=== PATIENT | male | born 1995 | race Caucasian/White ===

== ENCOUNTER 2018-03-24 16:30 | Emergency (ER) | payer OTHER ==
[~2018-03-24] VITALS: Ht 175.3 cm; Wt 64.5 kg
[~2018-03-24 16:30] MED LIST: BENT10CA PO
[2018-03-24 17:27] LABS: HEMATOCRIT 50.4 % (42.0-52.0); HEMOGLOBIN 15.9 g/dl (13.5-17.5); MEAN CORPUSCULAR HEMOGLOBIN 25.8 pg (27.0-33.0); MEAN CORPUSCULAR HGB CONC 31.5 g/dl (32.0-36.5); MEAN CORPUSCULAR VOLUME 81.7 fl (80.0-96.0); PLATELET COUNT, AUTOMATED 311 10^3/uL (150-450); RED BLOOD COUNT 6.17 10^6/uL (4.30-6.10); WHITE BLOOD COUNT 7.2 10^3/uL (4.0-10.0)
[2018-03-24 17:44] LABS: AMPHETAMINES LEVEL URINE NEGATIVE (NEGATIVE); BARBITURATES URINE NEGATIVE (NEGATIVE); BENZODIAZEPINES URINE NEGATIVE (NEGATIVE); CANNABINOIDS URINE NEGATIVE (NEGATIVE); COCAINE METABOLITE URINE NEGATIVE (NEGATIVE); METHADONE URINE NEGATIVE (NEGATIVE); OPIATES URINE NEGATIVE (NEGATIVE); PHENCYCLIDINE URINE NEGATIVE (NEGATIVE)
[2018-03-24 17:56] LABS: ACETAMINOPHEN LEVEL < 2.0 UG/ML (10.0-30.0); ALBUMIN 4.6 GM/DL (3.2-5.2); ALT/SGPT 25 U/L (12-78); BILIRUBIN,DIRECT 0.2 MG/DL (0.0-0.2); BILIRUBIN,TOTAL 0.7 MG/DL (0.2-1.0); BLOOD UREA NITROGEN 11 MG/DL (7-18); CALCIUM LEVEL 9.5 MG/DL (8.5-10.1); CARBON DIOXIDE LEVEL 29 MEQ/L (21-32); CHLORIDE LEVEL 104 MEQ/L (98-107); CREATININE FOR GFR 1.07 MG/DL (0.70-1.30); ETHYL ALCOHOL (ETHANOL) < 0.003 % (0.000-0.010); GLOMERULAR FILTRATION RATE > 60.0 (>60); GLUCOSE, FASTING 89 MG/DL (70-100); POTASSIUM SERUM 4.1 MEQ/L (3.5-5.1); SALICYLATE LEVEL < 1.7 MG/DL (5.0-30.0); SODIUM LEVEL 139 MEQ/L (136-145); THYROID STIMULATING HORMONE 0.714 uIU/ML (0.358-3.740); TOTAL PROTEIN 7.4 GM/DL (6.4-8.2)
[2018-03-25 05:57] VITALS: BP 128/60
--- NOTE | 2018-03-25 14:45 | ECGEPIP ---
Stationary ECG Study [facility] - ED Test Date: 2018-03-24 Pat Name: ARMANDO CARLSON Department: Room: - Gender: M [employer] Presser: [facility] : 1995 Requested By: JORGE L Sethi Order Number: [id number] Reading MD: Lexus Brand Measurements Intervals [place] Rate: 67 P: 74 MT: 151 QRS: 76 QRSD: 89 T: 76 QT: 352 QTc: 373 Interpretive Statements SINUS RHYTHM EARLY REPOLARIZATION NO PRIOR FOR COMPARISON Electronically Signed On 03-25-2018 14:45:20 EST by Lexus Brand
== END 2018-03-25 06:02 ==
LOC: M ED 16:30
DX: R45.851 Suicidal ideations (principal); Z88.5 Allergy status to narcotic agent; J30.81 Allergic rhinitis due to animal (cat) (dog) hair and dander
CPT/HCPCS: 36415; 80048; 80076; 80307; 84443; 85027; 93005; 99285; G0480

== ENCOUNTER → 2019-02-26 | Outpatient (REF) | payer OTHER ==
[2019-02-26 15:24] LABS: PLATELET COUNT, AUTOMATED 296 10^3/uL (150-450)
[2019-02-26 15:39] LABS: INR 1.11
== END ==
LOC: M LABDRAW1 14:34
PROVIDERS: ATTEND Physical Medicine & Rehabilitation
DX: M51.27 Other intervertebral disc displacement, lumbosacral region (principal)

== ENCOUNTER → 2019-07-25 | Outpatient (CLI) | payer OTHER | LOC: M LABSMTC 12:01 | PROVIDERS: ATTEND Physical Medicine & Rehabilitation | DX: Z11.59 Encounter for screening for other viral diseases (principal) | CPT/HCPCS: C9803; U0003 ==

== ENCOUNTER → 2020-01-01 | Outpatient (CLI) | payer OTHER ==
[2020-01-01 20:02] LABS: PLATELET COUNT, AUTOMATED 300 10^3/uL (150-450)
[2020-01-01 20:18] LABS: INR 0.99; PROTHROMBIN TIME 13.3 SECONDS (12.5-14.3)
[2020-01-01 20:19] LABS: PARTIAL THROMBOPLASTIN TIME 27.1 SECONDS (24.2-38.5)
== END ==
LOC: M LAB 19:13
PROVIDERS: ATTEND Physical Medicine & Rehabilitation
DX: Z01.812 Encounter for preprocedural laboratory examination (principal)